=== PATIENT | female | born 1960 ===

== ENCOUNTER → 2019-08-26 12:04 | Outpatient (CLI) | payer OTHER, SELFPAY ==
--- NOTE | ~2019-08-26 | XR_ITS ---
EXAMINATION: XR thoracic spine 3V DATE: 08/26/2019 12:50 INDICATION: Right-sided back pain. TECHNIQUE: 3 views of thoracic spine on 5 radiographs were obtained. COMPARISON: None. FINDINGS: There is 10 degrees dextroscoliosis of thoracic spine. Vertebral body heights are normal. T here is mildly decreased disc height at multiple levels. There is moderately decreased disc height at T7-T8. There are endplate osteophytes at all levels. There are surgical clips in left neck and right abdomen. IMPRESSION: 1. Moderate thoracic spondylosis. 2. Thoracic dextroscoliosis. Reviewed, dictated and finalized at location A. [employer]GER
== END ==
DX: M47.894 Other spondylosis, thoracic region (principal)
CPT/HCPCS: 72072